=== PATIENT | female | born 1965 ===

== ENCOUNTER 2016-09-16 16:09 | Emergency (ER) | payer OTHER ==
[2016-09-16] MEDS ORDERED: Ketorolac INJ* 60 MG/2 ML VIAL IM ONE (19:01)
[2016-09-16] MEDS ORDERED: acetaZOLAMIDE TAB* 250 MG PO ONE ×2 (19:41→20:08)
--- NOTE | 2016-09-16 19:59 | ED ---
Throat Pain/Nasal Congestion - HPI Summary HPI Summary: 51 female presents from PCP office with complaints or right eye pain that began ~4 days ago and has been progressively getting worse. She denies getting anything into her eye, discharge from the eye, itchiness and scratching her eye. She admits to some blurred vision and photosensitivity when outside. She has not tried taking anything besides ibuprofen for the pain. She has never had pain like this in the past. The pain she describes as throbbing and hurts worst on the top of her eye and with movement. Denies PMHx of glaucoma, diabetes and hypertension. Admits to her feeling swollen, hard to open, red and inflammed. Denies foreign body. No contact use. Wears reading glasses. States the pain has also caused her to have a headache on her right side. Denies fever/chills. - History of Current Complaint Chief Complaint: EDGeneral Time Seen by Provider: 09/16/16 17:51 Hx Obtained From: Patient Onset/Duration: Sudden Onset Severity: Moderate Associated Signs And Symptoms: Positive: Negative - Allergies/Home Medications Allergies/Adverse Reactions: Allergies Allergy/AdvReac Type Severity Reaction Status Date / Time No Known Allergies Allergy Verified 10/12/15 16:30 PMH/Surg Hx/FS Hx/Imm Hx Endocrine/Hematology History: Denies: Hx Diabetes Cardiovascular History: Denies: Hx Congestive Heart Failure, Hx Hypertension History: Denies: Hx Renal Disease Opthamlomology History: Denies: Hx Contacts or Glasses, Hx Eye Injury, Hx Glaucoma - Surgical History Surgery Procedure, Year, and Place: none - Immunization History Immunizations Up to Date: Yes Infectious Disease History: No Infectious Disease History: Denies: Traveled Outside the [place] in Last 30 Days - Family History Known Family History: Positive: None Family History: R & n/C - Social History Alcohol Use: Occasionally Hx Substance Use: No Substance Use Type: Reports: None Hx Tobacco Use: No Smoking Status (MU): Never Smoked Tobacco Review of Systems Constitutional: Negative Positive: Photophobia, Blurred Vision, Other - pain, erythema. Negative: Diplopia, Drainage, Erythema ENT: Negative Cardiovascular: Negative Respiratory: Negative Gastrointestinal: Negative Neurological: Negative Positive: Headache Psychological: Normal All Other Systems Reviewed And Are Negative: Yes Physical Exam Triage Information Reviewed: Yes Vital Signs On Initial Exam: Initial Vitals Temp Pulse Resp BP Pulse Ox 98.9 F 73 20 159/94 100 09/16/16 16:27 09/16/16 16:27 09/16/16 16:27 09/16/16 16:27 09/16/16 16:27 high pressure and respirations noted. patient was anxious and in pain Vital Signs Reviewed: Yes Appearance: Positive: Well-Appearing, Pain Distress - holding right eye Skin: Positive: Warm, Skin Color Reflects Adequate Perfusion, Dry Head/Face: Positive: Normal Head/Face Inspection Eyes: Positive: EOMI, GUERITA - right eye pupil slow to react when compared to left pupil, Conjunctiva Inflammed - "hot steamy cornea" apperance, Other: - erythematous throughout, no FB noted, painful when examining. tonopen pressure left eye 5 and right eye 86. fundoscopic exam attempted, hard to see in right eye due to patient's pain. left eye fundoscopic exam appeared normal. visual acuity intact. due to history and pe findings and eye pressure wood's or slit lamp not preformed as it would delay treatment.. Negative: Discharge ENT: Positive: Hearing grossly normal, Pharynx normal, TMs normal Neck: Positive: Supple, Nontender Respiratory/Lung Sounds: Positive: Clear to Auscultation, Breath Sounds Present Cardiovascular: Positive: Normal, RRR, Pulses are Symmetrical in both Upper and Lower Extremities Musculoskeletal: Positive: Strength/ROM Intact Neurological: Positive: Normal, Sensory/Motor Intact, Alert, Oriented to Person Place, Time Psychiatric: Positive: Normal, Affect/Mood Appropriate Procedures - Eye Procedure Alcaine Drops Administered: Yes - to use tonopen Diagnostics - Vital Signs Vital Signs Temp Pulse Resp BP Pulse Ox 09/16/16 16:27 98.9 F 73 20 159/94 100 - Laboratory Lab Statement: Any lab studies that have been ordered have been reviewed, and results considered in the medical decision making process. EENT Course/Dx - Course Course Of Treatment: toradol given for pain. spoke with Dr Johnston who instructed to given Diamox orally and given on to dispense and take home with her to take in the am before appointment. He stated to have her be seen at his office tomrrow at 730am. Dr Johnston also spoke with patient. patient had relief from headache with toradol. aware of worsening signs and symptoms. - Differential Diagnoses Differential Diagnoses: Conjunctivitis, Detached Retina, Glaucoma, Keratitis, Uveitis - Diagnoses Provider Diagnoses: Glaucoma (increased eye pressure), Acute right eye pain - Provider Notifications Discussed Care of Patient with: Dr Johnston Time Discussed With Above Provider: 19:35 Instructed by Provider To: Have Pt Call For Appt. 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 It is in a group office building [phone] right [address] [employer] [address]. Take second dose of medication (both pills) around 7am before going to appointment. If symptoms worsen or you have any loss of vision please return immediately.
[2016-09-16] MEDS ORDERED: acetaZOLAMIDE TAB* 250 MG ONE (20:09)
[2016-09-16 20:31] VITALS: BP 152/92
== END 2016-09-16 20:30 | disposition home or self-care (01) ==
LOC: ED 16:09
DX: H40.9 Unspecified glaucoma (principal); H57.11 Ocular pain, right eye
CPT/HCPCS: 96372; 99282; J1885